=== PATIENT | female | born 1975 | race Caucasian/White ===

== ENCOUNTER 2021-07-02 22:25 | Emergency (ER) | payer OTHER ==
[2021-07-02 22:34] VITALS: BMI 25.4
[2021-07-02 23:19] LABS: ALBUMIN 4.4 g/dl (3.4-5.0); BILIRUBIN,TOTAL 0.7 mg/dl (0.2-1); CALCIUM 9.3 mg/dl (8.5-10); CREATININE 0.5 mg/dl (0.55-1.3); TOT PROT 7.7 g/dl (6.4-8.2)
[2021-07-02 23:48] LABS: BASO % 0.4 % (0-2.0); EOS % 4.6 % (0-4.5); HEMATOCRIT 35.6 % (32.4-45.2); HEMOGLOBIN 11.8 GM/dL (10.7-15.3); LYMPH % 27.3 % (8-40); MCH 26.1 pg (25.7-33.7); MCHC 33.1 g/dl (32.0-36.0); MONO % 11.1 % (3.8-10.2); NEUT % 56.6 % (42.8-82.8); PLATELET COUNT 315 10^3/uL (134-434); RBC 4.51 M/mm3 (3.60-5.2); RDW 19.4 % (11.6-15.6); WHITE BLOOD COUNT 5.3 K/mm3 (4.0-10.0)
[2021-07-03 00:27] VITALS: BP 114/67; PULSE 73; TEMP 98.6
[2021-07-03] MEDS ORDERED: SIMETHICONE 80 MG TAB.CHEW (FP) PO STA (00:44)
[2021-07-03] MEDS ORDERED: SIMETHICONE 80 MG TAB.CHEW (FP) ONE (00:47)
== END 2021-07-03 01:00 | disposition home or self-care (01) ==
LOC: FER 22:25
DX: R10.31 Right lower quadrant pain (principal)
CPT/HCPCS: 36415; 74177-TC; 80053; 81003; 81015; 84703; 85025; 99285-25; Q9967